=== PATIENT | male | born 1945 | race Caucasian/White ===

== ENCOUNTER 2021-08-29 10:42 | Outpatient (CLI) | payer MEDICARE, OTHER | END 2021-08-29 10:43 | disposition home or self-care (01) | LOC: CSHMRI 10:42 | PROVIDERS: ATTEND Internal Medicine | DX: M51.17 Intervertebral disc disorders with radiculopathy, lumbosacral region (principal); R93.7 Abnormal findings on diagnostic imaging of other parts of musculoskeletal system | CPT/HCPCS: 72158; 82565 ==